=== PATIENT | female | born 2005 | race Caucasian/White ===

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

== ENCOUNTER 2024-12-13 09:20 | Outpatient (CLI) | payer OTHER ==
[~2024-12-13 09:20] MED LIST: PANTOPRAZOLE SO20 MG PO
== END 2024-12-13 09:25 | disposition home or self-care (01) ==
LOC: SONOGRAMA 09:20
PROVIDERS: ATTEND Pathology Anatomic Pathology
DX: D48.5 Neoplasm of uncertain behavior of skin (principal); R59.0 Localized enlarged lymph nodes